=== PATIENT | male | born 1970 | race Caucasian/White ===

== ENCOUNTER → 2016-08-24 | Outpatient (CLI) | payer BC ==
--- NOTE | 2016-08-24 21:35 | MR ---
EXAMINATION TYPE: MR shoulder RT wo con DATE OF EXAM: 08/24/2016 6:34 PM COMPARISON: NONE HISTORY: Shoulder pain TECHNIQUE: Multiplanar, multisequence imaging of the right shoulder is performed without contrast. FINDINGS: The biceps tendon is intact. Subscapularis tendon is intact anteriorly but there is some mild anterio r displacement with intermediate signal displacing anteriorly the anterior aspect of the subscapulari s tendon on the axial images. There is metal artifact at the AC joint. There is evidence of a large defect in the supraspinatus ten don with partial retraction on the coronal images. The glenoid shauna appear intact. I see no fracture . IMPRESSION: No fracture seen. There is a large rotator cuff tear involving supraspinatus tendon with partial retr action of the tendon. There is metal artifact at the AC joint which is not well evaluated consistent with previous surgery. There is some thickening posterior to the subscapularis tendon which shows some mild anterior displac ement and this could relate to some hypertrophic changes with intrasubstance tear of the posterior as pect of the subscapularis tendon.
== END | disposition home or self-care (01) ==
LOC: RADMRIMAIN 17:33
PROVIDERS: ATTEND Orthopaedic Surgery
DX: M75.101 Unspecified rotator cuff tear or rupture of right shoulder, not specified as traumatic (principal); M75.81 Other shoulder lesions, right shoulder

== ENCOUNTER 2016-09-16 10:38 | Observation (INO) | payer BC ==
[2016-09-16] MEDS ORDERED: ONDANSETRON 4 MG/2 ML VIAL IVP STA (11:16)
[2016-09-16] MEDS ORDERED: RX INFO: IV CONTRAST WAS GIVEN 1 EACH MISC MISCELLANE PRN (11:16)
[2016-09-16] MEDS ORDERED: MORPHINE SULFATE 4 MG/ML SYRINGE IVP STA ×2 (11:16→13:34)
--- NOTE | 2016-09-16 11:48 | ED ---
Skin/Abscess/FB HPI <Chris Dale - Last Filed: 09/16/16 14:43> - General Source: patient, RN notes reviewed Mode of arrival: ambulatory Limitations: no limitations <Nathan Grace - Last Filed: 09/16/16 15:26> - General Chief complaint: Skin/Abscess/Foreign Body Stated complaint: cyst on genitals Time Seen by Provider: 09/16/16 11:05 - History of Present Illness Initial comments: 46 year male presents emergency Department chief complaint scrotal, groin abscess. Patient states she's had this multiple times in the past most recently 3 months ago. Patient states that a urologist drained in the emergency department. Patient states he originally told using be admitted for this. Patient states that he has not had any surgery on it as discussed. Patient states the last few days or increased pain, swelling. States she generally does not feel well. Patient denies any known fever. Patient states that the swelling is increasing and is tracking towards his anus. (Nathan Grace ) - Related Data Home Medications Medication Instructions Recorded Confirmed ALPRAZolam [Xanax] 0.5 mg PO BID PRN 09/16/16 09/16/16 Allergies Allergy/AdvReac Type Severity Reaction Status Date / Time No Known Allergies Allergy Verified 09/16/16 13:57 Review of Systems ROS Other: All systems not noted in ROS Statement are negative. <ChitoChris - Last Filed: 09/16/16 14:43> ROS Other: All systems not noted in ROS Statement are negative. <Nathan Grace - Last Filed: 09/16/16 15:26> ROS Statement: Those systems with pertinent positive or pertinent negative responses have been documented in the HPI. Past Medical History Additional Past Medical History / Comment(s): Aortic aneurysm History of Any Multi-Drug Resistant Organisms: None Reported Past Surgical History: No Surgical Hx Reported, Orthopedic Surgery Additional Past Surgical History / Comment(s): hx acsending aortic aneuysm Past Psychological History: No Psychological Hx Reported Smoking Status: Current every day smoker Past Alcohol Use History: None Reported Past Drug Use History: None Reported <Nathan Grace - Last Filed: 09/16/16 15:26> General Exam Limitations: no limitations General appearance: alert, in no apparent distress Respiratory exam: Present: normal lung sounds bilaterally. Absent: respiratory distress, wheezes, rales, rhonchi, stridor Cardiovascular Exam: Present: regular rate, normal rhythm, normal heart sounds. Absent: systolic murmur, diastolic murmur, rubs, gallop, clicks GI/Abdominal exam: Present: soft, normal bowel sounds. Absent: distended, tenderness, guarding, rebound, rigid exam: Present: other (Results large 4-5 cm area of swelling, erythema noted under the scrotum with swelling and erythema tracking towards his rectum.) Skin exam: Present: warm, dry <Nathan Grace - Last Filed: 09/16/16 15:26> Course <Chris Dale - Last Filed: 09/16/16 14:43> <Nathan Grace - Last Filed: 09/16/16 15:26> Vital Signs 09/16/16 09/16/16 09/16/16 10:54 13:12 14:10 Temperature 98.8 F 98.7 F Pulse Rate 83 71 66 Respiratory 20 20 20 Rate Blood Pressure 123/88 133/80 128/76 O2 Sat by Pulse 97 97 96 Oximetry 09/16/16 15:13 Temperature 99.0 F Pulse Rate 79 Respiratory 20 Rate Blood Pressure 100/58 O2 Sat by Pulse 100 Oximetry - Reevaluation(s) Reevaluation #1: 09/16/16 14:44 I personally examine the patient discuss findings with him and his . Patient symptoms started about 3 days ago. He's had some aches has not felt well had some fever chill feelings. He does demonstrate approximately 5-6 cm x 2 and half to 3 cm indurated area to the left scrotum extending toward the anal verge. This is tender but no definite fluctuance. Ultrasound does show evidence of 4.3 cm complex collection. I did discuss the case with Dr. Porter who will come in to see the patient. Patient of note did not have a fever today. (Chris Dale) Medical Decision Making - Lab Data Result diagrams: 09/16/16 11:35 09/16/16 11:35 <Chris Dale - Last Filed: 09/16/16 14:43> - Lab Data Result diagrams: 09/16/16 11:35 09/16/16 11:35 <Nathan Grace - Last Filed: 09/16/16 15:26> - Lab Data Lab Results 02/12/17 02/12/17 02/12/17 Range/Units 11:35 11:35 14:54 WBC 12.1 H (3.8-10.6) k/uL RBC 5.49 (4.30-5.90) m/uL Hgb 15.6 (13.0-17.5) gm/dL Hct 46.4 (39.0-53.0) % MCV 84.5 (80.0-100.0) fL MCH 28.4 (25.0-35.0) pg MCHC 33.6 (31.0-37.0) g/dL RDW 12.8 (11.5-15.5) % Plt Count 166 (150-450) k/uL Neutrophils % 71 % Lymphocytes % 18 % Monocytes % 5 % Eosinophils % 3 % Basophils % 2 % Neutrophils # 8.6 H (1.3-7.7) k/uL Lymphocytes # 2.2 (1.0-4.8) k/uL Monocytes # 0.6 (0-1.0) k/uL Eosinophils # 0.3 (0-0.7) k/uL Basophils # 0.2 (0-0.2) k/uL Sodium 141 (137-145) mmol/L Potassium 4.6 (3.5-5.1) mmol/L Chloride 104 (98-107) mmol/L Carbon Dioxide 24 (22-30) mmol/L Anion Gap 13 mmol/L BUN 15 (9-20) mg/dL Creatinine 0.78 (0.66-1.25) mg/dL Est GFR (MDRD) Af Amer >60 (>60 ml/min/1.73 sqM) Est GFR (MDRD) Non-Af >60 (>60 ml/min/1.73 sqM) Glucose 86 (74-99) mg/dL Calcium 9.4 (8.4-10.2) mg/dL Urine Color Yellow Urine Appearance Clear (Clear) Urine pH 6.0 (5.0-8.0) Urine Protein Negative (Negative) Urine Glucose (UA) Negative (Negative) Urine Ketones Negative (Negative) Urine Blood Negative (Negative) Urine Nitrate Negative (Negative) Urine Bilirubin Negative (Negative) Urine Urobilinogen <2.0 (<2.0) mg/dL Ur Leukocyte Esterase Negative (Negative) Disposition <Chris Dale - Last Filed: 09/16/16 14:43> <Nathan Grace - Last Filed: 09/16/16 15:26> Clinical Impression: Scrotal abscess Disposition: ADMITTED IP TO THIS HOSP
[2016-09-16 11:58] LABS: Basophils # (A) 0.2 k/uL (0-0.2); Basophils % (A) 2 %; CH 29.8; CHCM 35.4; Eosinophils # (A) 0.3 k/uL (0-0.7); Eosinophils % (A) 3 %; HCT 46.4 % (39.0-53.0); HDW 2.75; HGB 15.6 gm/dL (13.0-17.5); Luc # (Auto) 0.17; Luc % (Auto) 1; Lymphocytes # (A) 2.2 k/uL (1.0-4.8); Lymphocytes % (A) 18 %; MCH 28.4 pg (25.0-35.0); MCHC 33.6 g/dL (31.0-37.0); MCV 84.5 fL (80.0-100.0); Mean Platelet Volume 9.1; Monocytes # (A) 0.6 k/uL (0-1.0); Monocytes % (A) 5 %; Neutrophils # (A) 8.6 k/uL (1.3-7.7); Neutrophils % (A) 71 %; RBC 5.49 m/uL (4.30-5.90); RDW 12.8 % (11.5-15.5); WBC 12.1 k/uL (3.8-10.6); WBC (Perox) 11.89
[2016-09-16 12:13] LABS: Anion Gap 13 mmol/L; Blood Urea Nitrogen 15 mg/dL (9-20); Calcium 9.4 mg/dL (8.4-10.2); Carbon Dioxide 24 mmol/L (22-30); Chloride 104 mmol/L (98-107); Glucose 86 mg/dL (74-99); Non-African American GFR(MDRD) >60 (>60 ml/min/1.73 sqM); Potassium 4.6 mmol/L (3.5-5.1); Sodium 141 mmol/L (137-145)
--- NOTE | 2016-09-16 13:17 | CT ---
EXAMINATION TYPE: CT pelvis w con DATE OF EXAM: 09/16/2016 1:10 PM COMPARISON: NONE HISTORY: genital cysts CT DLP: 1129.7 mGycm Automated exposure control for dose reduction was used. CONTRAST: Performed with IV Contrast, patient injected with 100 mL of Omnipaque 300. FINDINGS: CT pelvis soft tissues appear normal. Urinary bladder is unremarkable. The prostate contains calcific ation. Small inguinal lymph nodes are present. No enlarged inguinal adenopathy is present. Diverticul ar changes are within the sigmoid colon. The appendix is normal IMPRESSION: NO ACUTE PELVIC ABNORMALITY
--- NOTE | 2016-09-16 14:08 | US ---
EXAMINATION TYPE: US scrotum with doppler. Grayscale and color Doppler Duplex imaging performed of nathanael arrington scrotum. DATE OF EXAM: 09/16/2016 1:53 PM COMPARISON: NONE CLINICAL HISTORY: abscess. Left palpable, painful area. EXAM MEASUREMENTS: TESTICLES: Right Testicle: 5.6 x 3.9 x 2.5cm Left Testicle: 5.2 x 3.7 x 3.0cm EPIDIDYMIS HEAD: Right Epididymis: 1.2 cm Left Epididymis: 1.0 cm Doppler performed to assess for testicular vascularity; good bilateral color flow and waveforms are s een. There is no evidence of testicular torsion. Presence of hydroceles: mild bilaterally Presence of varicoceles: no TECHNOLOGIST IMPRESSION: Prominent left epididymis, at site of patients palpable lesion there appear s to be a 4.3cm complex collection that could correlate to an abscess. Complex area extends lateral i nferior of left testicle down to perineum. IMPRESSION: 1. Complex collection lateral and inferior to the testicle. No color flow is evident within this area . 2. Mild bilateral hydroceles. 3. Bilateral testicles appear normal with normal color-flow
[2016-09-16 15:07] LABS: Appearance,Urine Clear (Clear); Bilirubin,Urine Negative (Negative); Glucose,Urine (UA) Negative (Negative); Ketones,Urine Negative (Negative); Leukocyte Esterase,Urine Negative (Negative); Nitrite,Urine Negative (Negative); Protein,Urine Negative (Negative); UA Billing (MACRO vs. MICRO) CHEM; Urobilinogen,Urine <2.0 mg/dL (<2.0)
[2016-09-16] MEDS ORDERED: NALOXONE 0.4 MG/ML 1 ML VIAL IV PRN (15:26)
--- NOTE | 2016-09-16 15:38 | P.GSHP ---
History of Present Illness H&P Date: 09/16/16 Chief Complaint: Scrotal pain and swelling The patient is a 46-year-old gentleman with a history of scrotal abscess who presents with a three-day history of left scrotal and perineal swelling. He was seen in the emergency room and suspected to have a scrotal abscess. Scrotal ultrasound was obtained and indeed identified a scrotal abscess. His white count is 12,000. I was asked to see the patient. On clinical examination he has a fluctuant abscess in the base of the left scrotum and perineum. There are no rectal symptoms. He had previous drainage several months ago by for the same problem in the same location. He has had no fever. He has no major medical problems. He is not on blood thinners. - Constitutional Constitutional: Denies chills, Denies fever - Gastrointestinal Gastrointestinal: Denies abdominal pain, Denies diarrhea, Denies nausea, Denies vomiting - Genitourinary (Female) Genitourinary: Denies dysuria, Denies hematuria Past Medical History Additional Past Medical History / Comment(s): Aortic aneurysm History of Any Multi-Drug Resistant Organisms: None Reported Past Surgical History: Orthopedic Surgery Additional Past Surgical History / Comment(s): hx acsending aortic aneuysm, scrotal abscess drainage Past Psychological History: No Psychological Hx Reported Smoking Status: Current every day smoker Past Alcohol Use History: None Reported Past Drug Use History: None Reported Medications and Allergies Home Medications Medication Instructions Recorded Confirmed Type ALPRAZolam [Xanax] 0.5 mg PO BID PRN 09/16/16 09/16/16 History Allergies Allergy/AdvReac Type Severity Reaction Status Date / Time No Known Allergies Allergy Verified 09/16/16 13:57 Surgical - Exam Vital Signs Temp Pulse Resp BP Pulse Ox 98.8 F 83 20 123/88 97 09/16/16 10:54 09/16/16 10:54 09/16/16 10:54 09/16/16 10:54 09/16/16 10:54 - General well developed, well nourished, moderate distress - Eyes PERRL - ENT no hearing loss - Neck no masses - Respiratory normal expansion, normal respiratory effort - Cardiovascular Rhythm: regular - Abdomen Abdomen: soft, non tender - Genitourinary In the left posterior scrotum extending into the perineum there is a 3-4 cm fluctuant area consistent with a scrotal abscess confirmed on scrotal ultrasound normal penis with no external lesions, testicles present - Neurologic normal coordination, normal sensation - Musculoskeletal normal posture - Psychiatric oriented to time, oriented to person, oriented to place Results - Labs 09/16/16 11:35 09/16/16 11:35 Abnormal Lab Results - Last 24 Hours (Table) 09/16/16 Range/Units 11:35 WBC 12.1 H (3.8-10.6) k/uL Neutrophils # 8.6 H (1.3-7.7) k/uL Diabetes panel 09/16/16 Range/Units 11:35 Sodium 141 (137-145) mmol/L Potassium 4.6 (3.5-5.1) mmol/L Chloride 104 (98-107) mmol/L Carbon Dioxide 24 (22-30) mmol/L BUN 15 (9-20) mg/dL Creatinine 0.78 (0.66-1.25) mg/dL Glucose 86 (74-99) mg/dL Calcium 9.4 (8.4-10.2) mg/dL Calcium panel 09/16/16 Range/Units 11:35 Calcium 9.4 (8.4-10.2) mg/dL Pituitary panel 09/16/16 Range/Units 11:35 Sodium 141 (137-145) mmol/L Potassium 4.6 (3.5-5.1) mmol/L Chloride 104 (98-107) mmol/L Carbon Dioxide 24 (22-30) mmol/L BUN 15 (9-20) mg/dL Creatinine 0.78 (0.66-1.25) mg/dL Glucose 86 (74-99) mg/dL Calcium 9.4 (8.4-10.2) mg/dL Adrenal panel 09/16/16 Range/Units 11:35 Sodium 141 (137-145) mmol/L Potassium 4.6 (3.5-5.1) mmol/L Chloride 104 (98-107) mmol/L Carbon Dioxide 24 (22-30) mmol/L BUN 15 (9-20) mg/dL Creatinine 0.78 (0.66-1.25) mg/dL Glucose 86 (74-99) mg/dL Calcium 9.4 (8.4-10.2) mg/dL Assessment and Plan Plan: Impression: Scrotal abscess Recommendations: Incision and drainage of scrotal abscess. This will be done in the operating room. Patient has not eaten since 4:00. He'll be given perioperative antibiotics.
[2016-09-16] MEDS ORDERED: AMPICILLIN 2,000 MG in SODIUM CHLORIDE 0.9% 100 ML IVPB STA (15:40)
[2016-09-16 15:55] LABS: Specific Gravity,Urine >1.050 (1.001-1.035)
[2016-09-16] MEDS ORDERED: ONDANSETRON 4 MG/2 ML VIAL IVP PRN (16:17)
[2016-09-16] MEDS ORDERED: LACTATED RINGERS 1,000 ML IV SCH (16:30)
[2016-09-16] MEDS ORDERED: KETAMINE 10 MG/ML 20 ML VIAL ONE (16:59)
[2016-09-16] MEDS ORDERED: PROPOFOL 10 MG/ML 20 ML VIAL IV ONE (16:59)
[2016-09-16] MEDS ORDERED: fentaNYL (PF) 50 MCG/ML 2 ML AMP ONE (16:59)
[2016-09-16] MEDS ORDERED: KETOROLAC 30 MG/ML 1 ML VIAL ONE (16:59)
[2016-09-16] MEDS ORDERED: MIDAZOLAM 2 MG/2 ML VIAL ONE (16:59)
[2016-09-16] MEDS ORDERED: LACTATED RINGERS 1,000 ML IV ONE (16:59)
[2016-09-16] MEDS ORDERED: ONDANSETRON 4 MG/2 ML VIAL ONE (16:59)
[2016-09-16] MEDS: GENTAMICIN 160 MG in SODIUM CHLORIDE 0.9% 100 ML IVPB ONE ×2 (17:10→17:12)
--- NOTE | 2016-09-16 17:29 | P.OP ---
Date of Procedure: 09/16/16 Preoperative Diagnosis: Scrotal abscess Postoperative Diagnosis: Same Procedure(s) Performed: Incision and drainage of scrotal abscess, culture of scrotal abscess Anesthesia: FREDDIE Surgeon: Chencho Porter Estimated Blood Loss (ml): 10 Pathology: other (Wound culture) Condition: stable Disposition: PACU Indications for Procedure: The patient is a 46-year-old [id number] diabetic who has for 3 days scrotal swelling. On examination he has a scrotal abscess he comes for incision and drainage Description of Procedure: Patient is brought to the operating suite. He is given general anesthesia. He' s placed lithotomy position with a sterile prep and drape. The scrotum was elevated. A vertical incision for about 3 cm is made. I dissect down through the subcu cutaneous tissue into the scrotal abscess. A foul smelling . Bunny drainage was obtained. It was cultured. The wound is irrigated thoroughly. It is packed prior to form gauze. It is dressed. The patient's awake and returned recovery room good condition. He'll be discharged home later upon recovery if he feels adequate. He will follow in the office in the morning for dressing change.
--- NOTE | 2016-09-16 17:29 | P.DS ---
Providers Date of admission: 09/16/16 15:26 Attending physician: Chencho Porter Primary care physician: Joe Palacios [facility] Course: The patient came to the ER was brought to the operating suite in 09/16/2016 for incision and drainage of scrotal abscess. He tolerated this well and discharged home the same day. He will follow-up in the office the following day for dressing change. His discharge is [place] and Augmentin Procedures: Incision and drainage of scrotal abscess Patient Condition at Discharge: Good Plan - Discharge Summary New Discharge Prescriptions: Amoxicillin/Potassium Clav [Augmentin 875-125 Tablet] 1 tab PO Q12HR #14 tab Hydrocodone/Acetaminophen [[place] 7.5-325] 1 each PO Q4HR PRN #30 tab PRN Reason: Pain Control Discharge Medication List ALPRAZolam [Xanax] 0.5 mg PO BID PRN 09/16/16 [History] Amoxicillin/Potassium Clav [Augmentin 875-125 Tablet] 1 tab PO Q12HR #14 tab 07/21 [Rx] Hydrocodone/Acetaminophen [[place] 7.5-325] 1 each PO Q4HR PRN #30 tab 09/16/16 [ Rx] Follow up Appointment(s)/Referral(s): Joe Palacios MD [Primary Care Provider] - 1-2 days Chencho Porter MD [STAFF PHYSICIAN] - 09/17/16 Discharge Disposition: HOME SELF-CARE
[2016-09-16 17:41] VITALS: TEMP 99
[2016-09-16 17:46] VITALS: RESP 18
[2016-09-16] MEDS: HYDROmorphone 1 MG/ML 1 ML SYRINGE IVP PRN ×2 (17:48→18:00)
[2016-09-16 18:18] VITALS: BP 130/77; PULSE 64
== END 2016-09-16 19:49 | disposition home or self-care (01) ==
LOC: EC 10:38 → INTOOBSV 15:26 → 3SUR 15:26
PROVIDERS: ADMIT Urology; ATTEND Urology
DX: N49.2 Inflammatory disorders of scrotum (principal); F17.200 Nicotine dependence, unspecified, uncomplicated; E11.9 Type 2 diabetes mellitus without complications; B96.89 Other specified bacterial agents as the cause of diseases classified elsewhere; I71.9 Aortic aneurysm of unspecified site, without rupture
CPT/HCPCS: 55899; 96375; 96376; 36415; 80048; 85025; 81003; 87040; 87070; 87205; 87075; 93975; 76870; 72193; 99285; 96374; G0378; J2250; J2270; J1580; J2405; J3010; J1885; J0290; J1170; Q9967; J2704

== ENCOUNTER → 2016-09-25 | Outpatient (CLI) | payer BC ==
[2016-09-25 08:31] LABS: Basophils # (A) 0.1 k/uL (0-0.2); Basophils % (A) 1 %; CH 29.3; CHCM 34.4; Eosinophils # (A) 0.3 k/uL (0-0.7); Eosinophils % (A) 4 %; HCT 46.5 % (39.0-53.0); HDW 2.78; HGB 15.6 gm/dL (13.0-17.5); Luc # (Auto) 0.16; Luc % (Auto) 2; Lymphocytes # (A) 2.7 k/uL (1.0-4.8); Lymphocytes % (A) 38 %; MCH 28.7 pg (25.0-35.0); MCHC 33.6 g/dL (31.0-37.0); MCV 85.5 fL (80.0-100.0); Mean Platelet Volume 7.5; Monocytes # (A) 0.3 k/uL (0-1.0); Monocytes % (A) 4 %; Neutrophils # (A) 3.7 k/uL (1.3-7.7); Neutrophils % (A) 51 %; RBC 5.44 m/uL (4.30-5.90); RDW 12.7 % (11.5-15.5); WBC 7.1 k/uL (3.8-10.6); WBC (Perox) 7.28
[2016-09-25 08:40] LABS: Potassium 4.5 mmol/L (3.5-5.1)
== END | disposition home or self-care (01) ==
LOC: LABPAT 08:06
PROVIDERS: ATTEND Orthopaedic Surgery
DX: Z01.812 Encounter for preprocedural laboratory examination (principal)
CPT/HCPCS: 80051; 85025

== ENCOUNTER 2016-10-03 08:23 | Day surgery (SDC) | payer BC ==
[2016-10-01 12:03] VITALS: BMI 32.1
--- NOTE | 2016-10-02 18:52 | HP ---
DATE OF ADMISSION: 10/03/2016 Renato Mayen is a 46-year-old patient seen with progressive right shoulder pain. After having options regarding treatment discussed, he elected to proceed with right shoulder arthroscopy. Consent was obtained. ( ) preoperative by Dr. Quan. Past medical history is noncontributory. Past surgical history is knee arthroscopy, shoulder arthroscopy. DAILY MEDICATIONS: Motrin, Xanax. ALLERGIES: NONE REPORTED. SOCIAL HISTORY: Patient currently smokes cigarettes. PHYSICAL EVALUATION OF RIGHT SHOULDER: Flexion 150 degrees, abduction 120 degrees. External rotation is 45 degrees with some weakness. There is tenderness along the anterolateral acromion and the rotator cuff insertion. Impingement is positive 90 degrees. Drop arm sign is positive. Distal neurovascular exam is intact. Radiographs of the right shoulder revealed a lateral down-sloping acromion, evidence for acromioclavicular joint osteoarthritis. MRI of the right shoulder revealed a large retracted rotator cuff tendon tear. IMPRESSION: Right shoulder impingement with rotator cuff tear. PLAN: Right shoulder arthroscopy with subacromial decompression, probable arthroscopic rotator cuff repair and debridement.
[~2016-10-03 08:23] MED LIST: DEXAMETHASONE SOD PHOSPHATE 10 MG/ML 1 ML VIAL IV ONE; HYDROmorphone 1 MG/ML 1 ML SYRINGE IVP PRN; LACTATED RINGERS 1,000 ML IV SCH; MIDAZOLAM 2 MG/2 ML VIAL IV PRN; ONDANSETRON 4 MG/2 ML VIAL IVP ONE; ceFAZolin 2 GM in SODIUM CHLORIDE 0.9% 100 ML IVPB ONE; fentaNYL (PF) 50 MCG/ML 20 ML VIAL IVP PRN
[2016-10-03] MEDS ORDERED: MIDAZOLAM 2 MG/2 ML VIAL IVP ONE (08:40)
[2016-10-03] MEDS ORDERED: fentaNYL (PF) 50 MCG/ML 2 ML AMP IV ONE (08:40)
[2016-10-03 08:59] VITALS: RESP 16
[2016-10-03] MEDS ORDERED: LIDOCAINE 1% 20 ML VIAL (10MG/ML) FOR IV START INTRADERMA ONE (09:07)
[2016-10-03] MEDS ORDERED: fentaNYL (PF) 50 MCG/ML 2 ML AMP ONE (10:13)
[2016-10-03] MEDS ORDERED: PROPOFOL 10 MG/ML 20 ML VIAL IV ONE (10:13)
[2016-10-03] MEDS ORDERED: MIDAZOLAM 2 MG/2 ML VIAL ONE (10:13)
[2016-10-03] MEDS ORDERED: ROPIVACAINE 5 MG/ML 30 ML VIAL ONE (10:13)
[2016-10-03] MEDS ORDERED: ePHEDrine 50 MG/ML 1 ML AMP ONE (10:13)
[2016-10-03] MEDS ORDERED: LIDOCAINE 2%-EPI 1:100,000 20 ML VIAL ONE (10:13)
[2016-10-03] MEDS ORDERED: LIDOCAINE 1% INJ 10MG/ML (20 ML MDV) ONE (10:13)
[2016-10-03] MEDS ORDERED: LACTATED RINGERS 1,000 ML IV ONE (11:23)
[2016-10-03 11:54] VITALS: TEMP 97.1
--- NOTE | 2016-10-03 11:56 | P.OP ---
Date of Procedure: 10/03/16 Preoperative Diagnosis: Right shoulder impingement Postoperative Diagnosis: 1. Right shoulder impingement 2. Right shoulder superficial partial rotator cuff tendon tear 3. Right shoulder superior labral tear Procedure(s) Performed: 1. Right shoulder arthroscopic subacromial decompression 2. Right shoulder arthroscopic debridement superficial rotator cuff tear 3. Right shoulder arthroscopic debridement labral tear Anesthesia: GETA, regional (Interscalene block) Surgeon: Amari Pelayo Labor Expediter #1: Jorge Ortega Estimated Blood Loss (ml): 10 Pathology: none sent Condition: stable Disposition: PACU Indications for Procedure: 46-year-old patient seen with progressive right shoulder pain. After having treatment options discussed, he elected to proceed with right shoulder arthroscopy. Operative Findings: See description of procedure Description of Procedure: Patient underwent a shoulder block by department of anesthesia. The patient was then taken to the operative suite. The patient underwent a general anesthetic by the department of anesthesia. The patient was placed into a lateral position and secured. There was appropriate padding of the bony prominence. Right shoulder was then prepped and draped in normal sterile orthopedic fashion. We placed the extremity in 10 pounds of longitudinal traction. A posterior incision was now made for a posterior working portal site. The trocar and cannula were inserted into the glenohumeral joint. Arthroscopy was initiated. Spinal needle was now inserted anteriorly, to ascertain the anterior working portal site. An incision was now made in that area, a trocar was inserted followed by a probe. There was superficial tearing of the superior labrum. The humeral head and glenoid fossa were unremarkable. The biceps tendon was absent. The anterior labrum was diminutive but stable. The inferior and posterior labrum were intact. There were no loose bodies. I do not see any evidence for rotator cuff tear visualized from glenohumeral side. I debrided the labral tear down to stable tissue. The residual labrum was probed and found stable. At this point instruments were removed from the glenohumeral joint. Utilizing the posterior working portal site, the trocar and cannula were inserted into the subacromial space. Arthroscopy initiated. I made an incision 2 fingerbreadths lateral to the acromion. I introduced my trocar followed by my [employer] ablator. I now began ablating thick subacromial bursal tissue, which exposed the undersurface of the anterior acromion. This was diminished subacromial space. There was a very prominent anterior acromion. A motorized bur was introduced and a subacromial decompression was performed. I noted good decompression of the subacromial space at this point. There was evidence for previous Ev procedure which appeared stable. I now turned my attention towards rotator cuff tendon. There was some superficial tearing along the distal supraspinatus tendon centrally. I debrided that down to stable tissue. I probed the area and there was no evidence for any perforation or through and through tear. The residual tendon tissue was stable. I now injected 1 mL Allogen into the area without difficulty. Instruments now removed from the portal sites. All portal sites were approximated with nylon suture. Sterile dressings were applied followed by a shoulder immobilizer. Neel FONG assisted with the procedure. The patient was awakened, transferred to a bed, and taken to recovery in stable condition.
[2016-10-03 12:51] VITALS: BP 138/87; PULSE 68
== END 2016-10-03 14:19 | disposition home or self-care (01) ==
LOC: OR 08:23
PROVIDERS: ATTEND Orthopaedic Surgery
DX: M75.111 Incomplete rotator cuff tear or rupture of right shoulder, not specified as traumatic (principal); M75.41 Impingement syndrome of right shoulder; S43.401A Unspecified sprain of right shoulder joint, initial encounter; X58.XXXA Exposure to other specified factors, initial encounter; I71.9 Aortic aneurysm of unspecified site, without rupture; I10 Essential (primary) hypertension; Z79.1 Long term (current) use of non-steroidal anti-inflammatories (NSAID); Z79.891 Long term (current) use of opiate analgesic; Z79.899 Other long term (current) drug therapy; F17.210 Nicotine dependence, cigarettes, uncomplicated; Z82.49 Family history of ischemic heart disease and other diseases of the circulatory system
CPT/HCPCS: 64415; 29826; 29827; C1765; J2250; J1100; J0690; J2405; J2001; J3010; J2795; J2704

== ENCOUNTER 2017-05-10 03:11 | Observation (INO) | payer BC ==
[2017-05-10] MEDS ORDERED: ONDANSETRON 4 MG/2 ML VIAL IVP STA (03:37)
[2017-05-10] MEDS ORDERED: RX INFO: IV CONTRAST WAS GIVEN 1 EACH MISC MISCELLANE PRN (03:37)
[2017-05-10] MEDS ORDERED: MORPHINE SULFATE 4 MG/ML SYRINGE IV STA (03:37)
[2017-05-10] MEDS ORDERED: SODIUM CHLORIDE 0.9% 1,000 ML IV STA ×2 (03:37)
--- NOTE | 2017-05-10 03:49 | ED ---
General Adult HPI - General Source: patient, RN notes reviewed, old records reviewed Mode of arrival: ambulatory Limitations: no limitations <Chris Sweeney - Last Filed: 05/10/17 06:47> <Melchor Mendoza - Last Filed: 05/10/17 08:56> - General Chief complaint: Skin/Abscess/Foreign Body Stated complaint: cyst on groin area Time Seen by Provider: 05/10/17 03:33 - History of Present Illness Initial comments: 46-year-old male presents for evaluation 2 days of pain and swelling at the base of his scrotum. Patient has had history of abscess in this area and febrile or 2017. Patient had an abscess drained by urology. Patient reports over the past 2 days pain is significantly worsened. He has had subjective fever and chills. Denies any dysuria. Denies any testicular pain. Patient states he has had some nausea associated with the pain. No vomiting. No abdominal pain. Patient denies any drainage. Denies any rectal pain or change in his bowels. (Chris Sweeney) - Related Data Home Medications Medication Instructions Recorded Confirmed Citalopram Hydrobromide [CeleXA] 20 mg PO HS 05/10/17 05/10/17 Ibuprofen [Motrin] 600 mg PO Q6H PRN 05/10/17 05/10/17 Allergies Allergy/AdvReac Type Severity Reaction Status Date / Time No Known Allergies Allergy Verified 05/10/17 07:09 Review of Systems ROS Other: All systems not noted in ROS Statement are negative. <Chris Sweeney - Last Filed: 05/10/17 06:47> ROS Other: All systems not noted in ROS Statement are negative. <Melchor Mendoza - Last Filed: 05/10/17 08:56> ROS Statement: Those systems with pertinent positive or pertinent negative responses have been documented in the HPI. Past Medical History Additional Past Medical History / Comment(s): Aortic aneurysm History of Any Multi-Drug Resistant Organisms: None Reported Past Surgical History: Orthopedic Surgery Additional Past Surgical History / Comment(s): hx acsending aortic aneuysm, scrotal abscess drainage. right shoulder Past Psychological History: No Psychological Hx Reported Smoking Status: Current every day smoker Past Alcohol Use History: None Reported Past Drug Use History: None Reported <Chris Sweeney - Last Filed: 05/10/17 06:47> General Exam Limitations: no limitations General appearance: alert, in no apparent distress Head exam: Present: atraumatic, normocephalic Eye exam: Present: normal appearance, PERRL ENT exam: Present: mucous membranes dry Neck exam: Present: normal inspection. Absent: tenderness, meningismus Respiratory exam: Present: normal lung sounds bilaterally. Absent: respiratory distress Cardiovascular Exam: Present: normal rhythm, tachycardia GI/Abdominal exam: Present: soft. Absent: distended, tenderness Rectal exam: Present: normal inspection exam: Present: other (Large amount of swelling, erythema at the base of the scrotum. There is central fluctuance and surrounding induration.). Absent: testicular tenderness, urethral discharge, scrotal swelling Extremities exam: Present: normal inspection, full ROM Neurological exam: Present: alert, oriented X3 Psychiatric exam: Present: normal affect, normal mood Skin exam: Present: warm, dry, intact <Chris Sweeney - Last Filed: 05/10/17 06:47> Medical Decision Making - Lab Data Result diagrams: 05/10/17 03:48 05/10/17 03:48 <Chris Sweeney - Last Filed: 05/10/17 06:47> - Lab Data Result diagrams: 05/10/17 03:48 05/10/17 03:48 <Melchor Mendoza - Last Filed: 05/10/17 08:56> - Medical Decision Making 46-year-old male presenting with pain and swelling at the base of his scrotum. On examination patient does have an area of erythema, swelling, induration and severe tenderness in the perineum acid on the left. There is some swelling in the scrotum as well. No testicular tenderness. Blood processes revealed mild elevation in serum white count 12.8. Patient is initially tachycardic, this resolves with fluid hydration. No elevated temperature in the emergency department. Computed tomography scan of the pelvis is obtained, shows a 4 cm x 1.5 cm fluid collection with adjacent fat stranding. This does not appear to violate the pelvic floor. I did discuss the case with Dr. sullivan, who is familiar with the patient. He will evaluate the patient in the emergency department. Diagnosis: Perineal and scrotal abscess (HelChris robins Dr. came down to see the patient will be taking the patient to the OR. ( Melchor Mendoza) - Lab Data Lab Results 05/10/17 05/10/17 05/10/17 Range/Units 03:48 03:48 03:48 WBC 12.8 H (3.8-10.6) k/uL RBC 5.01 (4.30-5.90) m/uL Hgb 15.0 (13.0-17.5) gm/dL Hct 43.9 (39.0-53.0) % MCV 87.5 (80.0-100.0) fL MCH 30.0 (25.0-35.0) pg MCHC 34.2 (31.0-37.0) g/dL RDW 13.2 (11.5-15.5) % Plt Count 146 L (150-450) k/uL Neutrophils % 72 % Lymphocytes % 19 % Monocytes % 5 % Eosinophils % 3 % Basophils % 0 % Neutrophils # 9.2 H (1.3-7.7) k/uL Lymphocytes # 2.5 (1.0-4.8) k/uL Monocytes # 0.6 (0-1.0) k/uL Eosinophils # 0.4 (0-0.7) k/uL Basophils # 0.1 (0-0.2) k/uL Sodium 137 (137-145) mmol/L Potassium 4.7 (3.5-5.1) mmol/L Chloride 103 (98-107) mmol/L Carbon Dioxide 25 (22-30) mmol/L Anion Gap 9 mmol/L BUN 15 (9-20) mg/dL Creatinine 0.70 (0.66-1.25) mg/dL Est GFR (MDRD) Af Amer >60 (>60 ml/min/1.73 sqM) Est GFR (MDRD) Non-Af >60 (>60 ml/min/1.73 sqM) Glucose 97 (74-99) mg/dL Plasma Lactic Acid Kiran 0.9 (0.7-2.0) mmol/L Calcium 9.3 (8.4-10.2) mg/dL Total Bilirubin 0.5 (0.2-1.3) mg/dL AST 24 (17-59) U/L ALT 42 (21-72) U/L Alkaline Phosphatase 124 (38-126) U/L Total Protein 6.7 (6.3-8.2) g/dL Albumin 4.0 (3.5-5.0) g/dL Lipase 88 (23-300) U/L Urine Color Urine Appearance (Clear) Urine pH (5.0-8.0) Ur Specific [place] (1.001-1.035) Urine Protein (Negative) Urine Glucose (UA) (Negative) Urine Ketones (Negative) Urine Blood (Negative) Urine Nitrite (Negative) Urine Bilirubin (Negative) Urine Urobilinogen (<2.0) mg/dL Ur Leukocyte Esterase (Negative) 05/10/17 Range/Units 04:50 WBC (3.8-10.6) k/uL RBC (4.30-5.90) m/uL Hgb (13.0-17.5) gm/dL Hct (39.0-53.0) % MCV (80.0-100.0) fL MCH (25.0-35.0) pg MCHC (31.0-37.0) g/dL RDW (11.5-15.5) % Plt Count (150-450) k/uL Neutrophils % % Lymphocytes % % Monocytes % % Eosinophils % % Basophils % % Neutrophils # (1.3-7.7) k/uL Lymphocytes # (1.0-4.8) k/uL Monocytes # (0-1.0) k/uL Eosinophils # (0-0.7) k/uL Basophils # (0-0.2) k/uL Sodium (137-145) mmol/L Potassium (3.5-5.1) mmol/L Chloride (98-107) mmol/L Carbon Dioxide (22-30) mmol/L Anion Gap mmol/L BUN (9-20) mg/dL Creatinine (0.66-1.25) mg/dL Est GFR (MDRD) Af Amer (>60 ml/min/1.73 sqM) Est GFR (MDRD) Non-Af (>60 ml/min/1.73 sqM) Glucose (74-99) mg/dL Plasma Lactic Acid Kiran (0.7-2.0) mmol/L Calcium (8.4-10.2) mg/dL Total Bilirubin (0.2-1.3) mg/dL AST (17-59) U/L ALT (21-72) U/L Alkaline Phosphatase (38-126) U/L Total Protein (6.3-8.2) g/dL Albumin (3.5-5.0) g/dL Lipase (23-300) U/L Urine Color Yellow Urine Appearance Clear (Clear) Urine pH 7.5 (5.0-8.0) Ur Specific [place] 1.014 (1.001-1.035) Urine Protein Negative (Negative) Urine Glucose (UA) Negative (Negative) Urine Ketones Negative (Negative) Urine Blood Negative (Negative) Urine Nitrite Negative (Negative) Urine Bilirubin Negative (Negative) Urine Urobilinogen <2.0 (<2.0) mg/dL Ur Leukocyte Esterase Negative (Negative) Disposition <Chris Sweeney - Last Filed: 05/10/17 06:47> Time of Disposition: 08:55 <Melchor Mendoza - Last Filed: 05/10/17 08:56> Clinical Impression: Perineal abscess Disposition: ADMITTED IP TO THIS HOSP Referrals: Joe Palacios MD [Primary Care Provider] - 1-2 days
[2017-05-10] MEDS ORDERED: VANCOMYCIN IV PER PHARMACY 1 EACH MISC MISCELLANE PRN (04:07)
[2017-05-10] MEDS ORDERED: CLINDAMYCIN 600 MG in DEXTROSE 5% IN WATER 50 ML IVPB STA ×2 (04:09)
[2017-05-10 04:11] LABS: Basophils # (A) 0.1 k/uL (0-0.2); Basophils % (A) 0 %; CHCM 34.4; Eosinophils # (A) 0.4 k/uL (0-0.7); Eosinophils % (A) 3 %; HCT 43.9 % (39.0-53.0); HDW 2.66; Luc # (Auto) 0.15; Luc % (Auto) 1; Lymphocytes # (A) 2.5 k/uL (1.0-4.8); Lymphocytes % (A) 19 %; MCHC 34.2 g/dL (31.0-37.0); MCV 87.5 fL (80.0-100.0); Mean Platelet Volume 8.3; Monocytes # (A) 0.6 k/uL (0-1.0); Monocytes % (A) 5 %; Neutrophils # (A) 9.2 k/uL (1.3-7.7); Neutrophils % (A) 72 %; RBC 5.01 m/uL (4.30-5.90); RDW 13.2 % (11.5-15.5); WBC 12.8 k/uL (3.8-10.6)
[2017-05-10 04:23] LABS: ALT 42 U/L (21-72); AST 24 U/L (17-59); Alkaline Phosphatase 124 U/L (38-126); Anion Gap 9 mmol/L; Blood Urea Nitrogen 15 mg/dL (9-20); Calcium 9.3 mg/dL (8.4-10.2); Carbon Dioxide 25 mmol/L (22-30); Chloride 103 mmol/L (98-107); Glucose 97 mg/dL (74-99); Non-African American GFR(MDRD) >60 (>60 ml/min/1.73 sqM); Potassium 4.7 mmol/L (3.5-5.1); Sodium 137 mmol/L (137-145); Total Bilirubin 0.5 mg/dL (0.2-1.3); Total Protein 6.7 g/dL (6.3-8.2)
[2017-05-10 05:04] LABS: Appearance,Urine Clear (Clear); Bilirubin,Urine Negative (Negative); Glucose,Urine (UA) Negative (Negative); Ketones,Urine Negative (Negative); Leukocyte Esterase,Urine Negative (Negative); Nitrite,Urine Negative (Negative); PH, Urine 7.5 (5.0-8.0); Protein,Urine Negative (Negative); Specific Gravity,Urine 1.014 (1.001-1.035); UA Billing (MACRO vs. MICRO) CHEM; Urobilinogen,Urine <2.0 mg/dL (<2.0)
[2017-05-10] MEDS ORDERED: KETOROLAC 30 MG/ML 1 ML VIAL IVP STA ×2 (05:38→11:32)
--- NOTE | 2017-05-10 05:47 | CT ---
ADDENDUM - Added by Airam Jaime M.D. on 05/10/2017 6:01 AM (-07:00) Finding in the left perineum extending into the left scrotal sac measuring 4 x 1.5 cm concerning for developing abscess. Surrounding inflammatory change and soft tissue stranding. No definite extension into the pelvic floor at this time. Findings similar to the prior CT of 09/16/16 likely recurrence of infection EXAM: CT Abdomen and Pelvis With Intravenous Contrast CLINICAL HISTORY: Reason: abdominal pain TECHNIQUE: Axial computed tomography images of the abdomen and pelvis with intravenous contrast. CTDI is 14.1 mGy and DLP is 933 mGy-cm. This CT exam was performed using one or more of the following dose reduction techniques: automated exposure control, adjustment of the mA and/or kV according to patient size, and/or use of iterative reconstruction technique. COMPARISON: Prior CT of the pelvis performed on 09/16/16 FINDINGS: Lower thorax: Bibasilar atelectasis/scarring. ABDOMEN: Liver: Unremarkable. No mass. Gallbladder and bile ducts: Unremarkable. No calcified stones. No ductal dilation. Pancreas: Unremarkable. No mass. No ductal dilation. Spleen: Unremarkable. No splenomegaly. Adrenals: Unremarkable. No mass. Kidneys and ureters: Small left renal lesion, probable cyst. This is too small to fully characterize. Duplicated left renal collecting system. Stomach and bowel: Mild diverticulosis. Thickening of the stomach wall, likely due to underdistention. Nonspecific bowel gas pattern in the small bowel. Few scattered air-fluid levels in the small bowel loops in the left midabdomen, probable focal ileus. Mild enteritis can give this appearance. No evidence for small bowel obstruction. Appendix: Normal appendix. PELVIS: Bladder: Underdistended bladder. No bladder calcification. Reproductive: Punctate calcification in the prostate, unchanged. ABDOMEN and PELVIS: Intraperitoneal space: No free fluid. No free air. Bones/joints: No acute fracture. No dislocation. Soft tissues: Unremarkable. Vasculature: Unremarkable. No abdominal aortic aneurysm. Lymph nodes: Unremarkable. No enlarged lymph nodes. Other findings: Mild to moderate retained stool. IMPRESSION: Nonspecific bowel gas pattern with findings which may reflect focal ileus versus enteritis. Mild to moderate retained stool. No free fluid or free air. Mild diverticulosis. Critical Value Communications 05/10/17 05:[address] Sweeney on 05/10 05:52 (-04:00) 05/10/17 06:11 Verify Receipt Verified receipt with SARABJIT Espinoza in ER for Dr. Lee on 05/10 06:10 (-04:00)
[2017-05-10] MEDS ORDERED: MORPHINE SULFATE 4 MG/ML SYRINGE IVP STA (06:11)
--- NOTE | 2017-05-10 07:45 | P.GSHP ---
History of Present Illness H&P Date: 05/10/17 Chief Complaint: Scrotal swelling The patient is a 46 year old male with a and bilateral says he first developed some fullness he was anterior to the anus and posterior the scrotum on 2016. As today he noted increasing swelling as well as a low-grade fever and chills. He has a history of a scrotal abscess which was drained by Dr. Porter in 09/2016 and was concerned that he may have a recurrence. He came to the emergency room late last night where he was evaluated and noted to have a white blood count of 12,800. Computed tomography scan of the abdomen and pelvis showed evidence of an abscess to the left of the anus in the perineal area. The patient was admitted for the purpose of antibiotic treatment and incision and drainage of the abscess. - Constitutional Constitutional: Reports chills, Reports sweats - Cardiovascular Cardiovascular: Denies chest pain - Respiratory Respiratory: Denies cough, Denies wheezing - Gastrointestinal Gastrointestinal: Denies abdominal pain - Genitourinary (Female) Genitourinary: Denies difficulty voiding, Denies dysuria - Genitourinary (Male) Genitourinary: Reports as per HPI Past Medical History Additional Past Medical History / Comment(s): Aortic aneurysm History of Any Multi-Drug Resistant Organisms: None Reported Past Surgical History: Orthopedic Surgery Additional Past Surgical History / Comment(s): hx acsending aortic aneuysm, scrotal abscess drainage. right shoulder Past Psychological History: No Psychological Hx Reported Smoking Status: Current every day smoker Past Alcohol Use History: None Reported Past Drug Use History: None Reported Medications and Allergies Home Medications Medication Instructions Recorded Confirmed Type Citalopram Hydrobromide [CeleXA] 20 mg PO HS 05/10/17 05/10/17 History Ibuprofen [Motrin] 600 mg PO Q6H PRN 05/10/17 05/10/17 History Allergies Allergy/AdvReac Type Severity Reaction Status Date / Time No Known Allergies Allergy Verified 05/10/17 07:09 Surgical - Exam Vital Signs Temp Pulse Resp BP Pulse Ox 98.5 F 106 H 20 129/75 98 05/10/17 03:16 05/10/17 03:16 05/10/17 03:16 05/10/17 03:16 05/10/17 03:16 - General well developed, moderate distress - Respiratory normal respiratory effort - Abdomen Abdomen: soft, non tender - Genitourinary testicles non-tender, other (There is a fluctuant mass in the perineum to the left of the midline was to the scrotum and anterior to the anus which measures approximately 2 cm in diameter. Corresponds to the abnormality noted on the computed tomography scan and would be consistent with a perineal abscess) - Rectum Rectum: other Results - Labs 05/10/17 03:48 05/10/17 03:48 Abnormal Lab Results - Last 24 Hours (Table) 05/10/17 Range/Units 03:48 WBC 12.8 H (3.8-10.6) k/uL Plt Count 146 L (150-450) k/uL Neutrophils # 9.2 H (1.3-7.7) k/uL Diabetes panel 05/10/17 Range/Units 03:48 Sodium 137 (137-145) mmol/L Potassium 4.7 (3.5-5.1) mmol/L Chloride 103 (98-107) mmol/L Carbon Dioxide 25 (22-30) mmol/L BUN 15 (9-20) mg/dL Creatinine 0.70 (0.66-1.25) mg/dL Glucose 97 (74-99) mg/dL Calcium 9.3 (8.4-10.2) mg/dL AST 24 (17-59) U/L ALT 42 (21-72) U/L Alkaline Phosphatase 124 (38-126) U/L Total Protein 6.7 (6.3-8.2) g/dL Albumin 4.0 (3.5-5.0) g/dL Calcium panel 05/10/17 Range/Units 03:48 Calcium 9.3 (8.4-10.2) mg/dL Albumin 4.0 (3.5-5.0) g/dL Pituitary panel 05/10/17 Range/Units 03:48 Sodium 137 (137-145) mmol/L Potassium 4.7 (3.5-5.1) mmol/L Chloride 103 (98-107) mmol/L Carbon Dioxide 25 (22-30) mmol/L BUN 15 (9-20) mg/dL Creatinine 0.70 (0.66-1.25) mg/dL Glucose 97 (74-99) mg/dL Calcium 9.3 (8.4-10.2) mg/dL Adrenal panel 05/10/17 Range/Units 03:48 Sodium 137 (137-145) mmol/L Potassium 4.7 (3.5-5.1) mmol/L Chloride 103 (98-107) mmol/L Carbon Dioxide 25 (22-30) mmol/L BUN 15 (9-20) mg/dL Creatinine 0.70 (0.66-1.25) mg/dL Glucose 97 (74-99) mg/dL Calcium 9.3 (8.4-10.2) mg/dL Total Bilirubin 0.5 (0.2-1.3) mg/dL AST 24 (17-59) U/L ALT 42 (21-72) U/L Alkaline Phosphatase 124 (38-126) U/L Total Protein 6.7 (6.3-8.2) g/dL Albumin 4.0 (3.5-5.0) g/dL - Imaging CT scan - abdomen: image reviewed (There appears to be an abscess to the left of the midline in the perineal region) Assessment and Plan (1) Perineal abscess Narrative/Plan: The patient appears to have recurrence of his perineal abscess. He has been started on antibiotics and will be set up for incision and drainage under anesthesia later today. Status: Acute
[2017-05-10] MEDS ORDERED: MORPHINE SULFATE 2 MG/ML SYRINGE IVP ONE (09:06)
[2017-05-10] MEDS ORDERED: DEXAMETHASONE SOD PHOSPHATE 10 MG/ML 1 ML VIAL IV ONE (11:49)
[2017-05-10] MEDS ORDERED: IV FLUID CONTINUATION 1,000 ML IV ONE (12:18)
[2017-05-10] MEDS ORDERED: MIDAZOLAM 2 MG/2 ML VIAL ONE (12:22)
[2017-05-10] MEDS ORDERED: ePHEDrine 50 MG/ML 1 ML AMP ONE (12:22)
[2017-05-10] MEDS ORDERED: fentaNYL (PF) 50 MCG/ML 2 ML AMP ONE (12:22)
[2017-05-10] MEDS ORDERED: HYDROmorphone (PF) 1 MG/ML ONE (12:22)
[2017-05-10] MEDS ORDERED: PROPOFOL 10 MG/ML 20 ML VIAL IV ONE (12:22)
[2017-05-10] MEDS ORDERED: LACTATED RINGERS 1,000 ML IV ONE (12:44)
[2017-05-10 13:04] VITALS: RESP 18; TEMP 98.4
[2017-05-10 13:50] VITALS: PULSE 65
--- NOTE | 2017-05-10 16:20 | P.OP ---
Date of Procedure: 05/10/17 Preoperative Diagnosis: Perineal abscess Postoperative Diagnosis: Perineal abcess Procedure(s) Performed: Incision and drainage of perineal abcess Anesthesia: FREDDIE Surgeon: Matias Hanna Condition: stable Disposition: PACU Indications for Procedure: The patient is a 46-year-old male with a history of swelling in the perineum posterior to the scrotum on the left side which began 2 days ago. The patient has a fluctuant area consistent with an abscess. Incision and drainage is planned. Description of Procedure: The patient was taken the operating suite where adequate general anesthesia via LMA was instituted. The patient was placed in the dorsal lithotomy position with his legs suspended from padded Hesham stirrups. Pneumatic compression stockings were applied to the lower legs. The perineum was prepped with Betadine solution and draped in a sterile fashion. A fluctuant area was present to the left of the midline posterior to the scrotum. A 1.5 cm skin incision was made in the central area of the fluctuant region and approximately 30 mL of yellowish brown purulent material drained. The abscess cavity was probed with a hemostat and no additional drainage was liberated. Abscess cavity was irrigated with saline through a 16-Danish red rubber catheter. It was then packed with 1/2 inch iodoform gauze which was secured to the skin edge with 2-0 silk. A sterile dressing was applied. The patient tolerated the procedure well and left the operative room awake and in satisfactory condition. A culture from the fluid was obtained. Blood loss during the procedure was less than 2 mL.
[2017-05-10 17:27] VITALS: BP 116/69
[2017-05-10] MEDS ORDERED: CITALOPRAM HYDROBROMIDE 20 MG TAB PO SCH (21:00)
--- NOTE | 2017-06-03 20:15 | P.DS ---
Providers Date of admission: 05/10/17 08:56 Expected date of discharge: 05/10/17 Attending physician: Matias Hanna Primary care physician: Joe Palacios - Discharge Diagnosis(es) (1) Perineal abscess The patient was admitted from the ER for the purpose of drainage of a perineal abcess. He has a history of a similar abcess that required drainage under anesthesia in the spring. The patient underwent Incision and drainage of the abcess under general anesthesia on the day of admission and was discharged later in the day. The abcess cavity was packed with Iodoform gauze. Status: Acute Patient Condition at Discharge: Good Plan - Discharge Summary New Discharge Prescriptions: New Acetaminophen-Codeine 300-30mg [Tylenol w/codeine #3] 1 tab PO Q6H PRN #6 tablet PRN Reason: Pain Sulfamethox-Tmp 800-160Mg [Bactrim DS 800-160 mg] 1 tab PO Q12HR #14 tab No Action Citalopram Hydrobromide [CeleXA] 20 mg PO HS Ibuprofen [Motrin] 600 mg PO Q6H PRN PRN Reason: Pain Discharge Medication List Acetaminophen-Codeine 300-30mg [Tylenol w/codeine #3] 1 tab PO Q6H PRN #6 tablet 05/10/17 [Rx] Citalopram Hydrobromide [CeleXA] 20 mg PO HS 05/10/17 [History] Ibuprofen [Motrin] 600 mg PO Q6H PRN 05/10/17 [History] Sulfamethox-Tmp 800-160Mg [Bactrim DS 800-160 mg] 1 tab PO Q12HR #14 tab [Rx] Follow up Appointment(s)/Referral(s): Joe Palacios MD [Primary Care Provider] - As Needed Chencho Porter MD [STAFF PHYSICIAN] - 05/13/17 Activity/Diet/Wound Care/Special Instructions: pt is to call Dr. Porter's office for follow up appt. Discharge Disposition: HOME SELF-CARE
== END 2017-05-10 16:47 | disposition home or self-care (01) ==
LOC: EC 03:11 → 3OBS 08:56
PROVIDERS: ADMIT Urology; ATTEND Urology
DX: L02.215 Cutaneous abscess of perineum (principal); F17.200 Nicotine dependence, unspecified, uncomplicated; Z79.899 Other long term (current) drug therapy; I71.2 Thoracic aortic aneurysm, without rupture
CPT/HCPCS: 10061; 99285; 96365; 96375 ×4; 96361 ×6; 96376 ×3; 36415; 80053; 83605; 83690; 85025; 81003; 87040; 87070; 87086; 87205; 87075; 74177; G0378; J2250; J2270 ×2; J1100; J2405; J0696; J3010; J1885; J1170; Q9967; J2704

== ENCOUNTER 2022-01-09 23:05 | Emergency (ER) | payer BC ==
[2022-01-09 23:30] VITALS: TEMP 97.7
[2022-01-09 23:55] LABS: Basophils # (A) 0.1 k/uL (0-0.2); Basophils % (A) 1 %; Eosinophils # (A) 0.4 k/uL (0-0.7); Eosinophils % (A) 4 %; HCT 48.7 % (39.0-53.0); HGB 15.5 gm/dL (13.0-17.5); Lymphocytes # (A) 3.9 k/uL (1.0-4.8); Lymphocytes % (A) 36 %; MCH 27.7 pg (25.0-35.0); MCHC 31.9 g/dL (31.0-37.0); Mean Platelet Volume 8.6; Monocytes # (A) 0.5 k/uL (0-1.0); Monocytes % (A) 5 %; Neutrophils # (A) 5.7 k/uL (1.3-7.7); Neutrophils % (A) 53 %; Platelet Count 192 k/uL (150-450); RDW 12.9 % (11.5-15.5); WBC 10.7 k/uL (3.8-10.6)
[2022-01-10 00:12] LABS: ALT 34 U/L (4-49); AST 33 U/L (17-59); African American GFR (CKD) >90 (>60 ml/min/1.73 sqM); Albumin 4.5 g/dL (3.5-5.0); Alkaline Phosphatase 96 U/L (38-126); Anion Gap 9 mmol/L; Blood Urea Nitrogen 14 mg/dL (9-20); Calcium 9.3 mg/dL (8.4-10.2); Carbon Dioxide 24 mmol/L (22-30); Chloride 102 mmol/L (98-107); Glucose 78 mg/dL (74-99); Magnesium 1.8 mg/dL (1.6-2.3); Non-African American GFR(CKD) >90 (>60 ml/min/1.73 sqM); Potassium 4.1 mmol/L (3.5-5.1); Sodium 135 mmol/L (137-145); Total Bilirubin 0.3 mg/dL (0.2-1.3); Total Protein 7.2 g/dL (6.3-8.2)
[2022-01-10 00:22] LABS: INR 1.1 (<1.2)
[2022-01-10 00:23] LABS: Prothrombin Time 11.6 sec (9.0-12.0)
[2022-01-10] MEDS ORDERED: cloNIDine HCL 0.2 MG TAB PO STA (02:56)
--- NOTE | 2022-01-10 03:14 | XR ---
EXAMINATION TYPE: XR chest 2V DATE OF EXAM: 01/10/2022 COMPARISON: 05/27/2010 HISTORY: Chest pain TECHNIQUE: 2 views FINDINGS: Heart and mediastinum are normal. Lungs are clear. Diaphragm is normal. There are no hilar masses. Bony thorax is intact. IMPRESSION: No active cardiopulmonary disease. Normal heart. No change.
[2022-01-10 03:57] VITALS: PULSE 68
[2022-01-10 04:52] VITALS: BP 127/76; RESP 16
--- NOTE | 2022-01-10 04:57 | ED ---
Dizziness HPI - General Chief Complaint: Dizziness Stated Complaint: High BP Time Seen by Provider: 01/10/22 02:44 Source: patient Mode of arrival: ambulatory Limitations: no limitations - History of Present Illness Initial Comments: This patient's 51-year-old man with history of thoracic aortic aneurysm who presents to have evaluation for feeling of lightheadedness. He noticed it had come on at work and then when he checked his blood pressure was elevated. Patient was concerned because a history of aneurysm. He states that he usually does not have high blood pressure. He takes no medications. He denies chest pain, dyspnea, diaphoresis, palpitations or syncope. MD Complaint: lightheadedness -: hour(s) Timing: gradual onset Description: lightheadedness History of Same: No History of Trauma: No Severity: mild Improves With: nothing Worsens With: nothing Associated Symptoms: denies other symptoms - Related Data Home Medications Medication Instructions Recorded Confirmed Citalopram Hydrobromide [CeleXA] 20 mg PO HS 05/10/17 05/10/17 Ibuprofen [Motrin] 600 mg PO Q6H PRN 05/10/17 05/10/17 Previous Rx's Medication Instructions Recorded Acetaminophen-Codeine 300-30mg 1 tab PO Q6H PRN #6 tablet 05/10/17 [Tylenol w/codeine #3] Sulfamethox-Tmp 800-160Mg [Bactrim 1 tab PO Q12HR #14 tab 05/10/17 DS 800-160 mg] Allergies Allergy/AdvReac Type Severity Reaction Status Date / Time No Known Allergies Allergy Verified 05/10/17 11:50 Review of Systems ROS Statement: Those systems with pertinent positive or pertinent negative responses have been documented in the HPI. ROS Other: All systems not noted in ROS Statement are negative. Constitutional: Denies: fever, chills, weakness Eyes: Denies: vision change Respiratory: Denies: cough, dyspnea Cardiovascular: Denies: chest pain, palpitations, edema, syncope Gastrointestinal: Denies: abdominal pain, nausea, vomiting Genitourinary: Denies: dysuria, hematuria Musculoskeletal: Denies: back pain Skin: Denies: rash Neurological: Denies: headache, weakness, paresthesias, confusion Past Medical History Past Medical History: Hypertension, Vascular Disorder Additional Past Medical History / Comment(s): Aortic aneurysm being monitored by Dr. Solis at [facility], 09/2016 scrotal abscess with surgery, past HTN but taken off meds, occasional low back pain, recovering alcoholic. History of Any Multi-Drug Resistant Organisms: None Reported Past Surgical History: Orthopedic Surgery Additional Past Surgical History / Comment(s): I & D scrotal abscess, R rotator cuff repair/debridement, R knee arthroscopy, low back epidural injections, colonoscopy with benign polypectomy. Past Anesthesia/Blood Transfusion Reactions: No Reported Reaction, Motion Sickness Past Psychological History: Depression Past Alcohol Use History: None Reported Past Drug Use History: None Reported - Past Family History Mother Family Medical History: No Reported History Father Family Medical History: No Reported History Additional Family Medical History / Comment(s): Father is healthy and is 69yrs old. General Exam Limitations: no limitations General appearance: alert, in no apparent distress Head exam: Present: atraumatic, normocephalic Eye exam: Present: normal appearance. Absent: scleral icterus, conjunctival injection ENT exam: Present: normal oropharynx Neck exam: Present: normal inspection Respiratory exam: Present: normal lung sounds bilaterally. Absent: respiratory distress, wheezes, rales, rhonchi, stridor Cardiovascular Exam: Present: regular rate, normal rhythm, normal heart sounds. Absent: systolic murmur, diastolic murmur, rubs, gallop GI/Abdominal exam: Present: soft. Absent: distended, tenderness, guarding, rebound, rigid, mass Extremities exam: Present: normal inspection, normal capillary refill. Absent: pedal edema, calf tenderness Back exam: Present: normal inspection. Absent: CVA tenderness (R), CVA tenderness (L) Neurological exam: Present: alert, oriented X3, CN II-XII intact. Absent: motor sensory deficit Skin exam: Present: warm, dry, intact, normal color. Absent: rash Course Vital Signs 01/09/22 01/10/22 01/10/22 23:25 02:29 03:56 Temperature 97.7 F Pulse Rate 85 65 68 Respiratory 16 16 15 Rate Blood Pressure 149/99 143/101 135/89 O2 Sat by Pulse 98 98 97 Oximetry 01/10/22 04:51 Temperature Pulse Rate 68 Respiratory 16 Rate Blood Pressure 127/76 O2 Sat by Pulse 97 Oximetry Medical Decision Making - Lab Data Result diagrams: 01/09/22 23:31 01/09/22 23:31 Lab Results 01/09/22 01/09/22 01/09/22 Range/Units 23:31 23:31 23:31 WBC 10.7 H (3.8-10.6) k/uL RBC 5.60 (4.30-5.90) m/uL Hgb 15.5 (13.0-17.5) gm/dL Hct 48.7 (39.0-53.0) % MCV 87.0 (80.0-100.0) fL MCH 27.7 (25.0-35.0) pg MCHC 31.9 (31.0-37.0) g/dL RDW 12.9 (11.5-15.5) % Plt Count 192 (150-450) k/uL MPV 8.6 Neutrophils % 53 % Lymphocytes % 36 % Monocytes % 5 % Eosinophils % 4 % Basophils % 1 % Neutrophils # 5.7 (1.3-7.7) k/uL Lymphocytes # 3.9 (1.0-4.8) k/uL Monocytes # 0.5 (0-1.0) k/uL Eosinophils # 0.4 (0-0.7) k/uL Basophils # 0.1 (0-0.2) k/uL PT (9.0-12.0) sec INR (<1.2) Sodium 135 L (137-145) mmol/L Potassium 4.1 (3.5-5.1) mmol/L Chloride 102 (98-107) mmol/L Carbon Dioxide 24 (22-30) mmol/L Anion Gap 9 mmol/L BUN 14 (9-20) mg/dL Creatinine 0.92 (0.66-1.25) mg/dL Est GFR (CKD-EPI)AfAm >90 (>60 ml/min/1.73 sqM) Est GFR (CKD-EPI)NonAf >90 (>60 ml/min/1.73 sqM) Glucose 78 (74-99) mg/dL Calcium 9.3 (8.4-10.2) mg/dL Magnesium 1.8 (1.6-2.3) mg/dL Total Bilirubin 0.3 (0.2-1.3) mg/dL AST 33 (17-59) U/L ALT 34 (4-49) U/L Alkaline Phosphatase 96 (38-126) U/L Troponin I <0.012 (0.000-0.034) ng/mL Total Protein 7.2 (6.3-8.2) g/dL Albumin 4.5 (3.5-5.0) g/dL 01/09/22 Range/Units 23:31 WBC (3.8-10.6) k/uL RBC (4.30-5.90) m/uL Hgb (13.0-17.5) gm/dL Hct (39.0-53.0) % MCV (80.0-100.0) fL MCH (25.0-35.0) pg MCHC (31.0-37.0) g/dL RDW (11.5-15.5) % Plt Count (150-450) k/uL MPV Neutrophils % % Lymphocytes % % Monocytes % % Eosinophils % % Basophils % % Neutrophils # (1.3-7.7) k/uL Lymphocytes # (1.0-4.8) k/uL Monocytes # (0-1.0) k/uL Eosinophils # (0-0.7) k/uL Basophils # (0-0.2) k/uL PT 11.6 (9.0-12.0) sec INR 1.1 (<1.2) Sodium (137-145) mmol/L Potassium (3.5-5.1) mmol/L Chloride (98-107) mmol/L Carbon Dioxide (22-30) mmol/L Anion Gap mmol/L BUN (9-20) mg/dL Creatinine (0.66-1.25) mg/dL Est GFR (CKD-EPI)AfAm (>60 ml/min/1.73 sqM) Est GFR (CKD-EPI)NonAf (>60 ml/min/1.73 sqM) Glucose (74-99) mg/dL Calcium (8.4-10.2) mg/dL Magnesium (1.6-2.3) mg/dL Total Bilirubin (0.2-1.3) mg/dL AST (17-59) U/L ALT (4-49) U/L Alkaline Phosphatase (38-126) U/L Troponin I (0.000-0.034) ng/mL Total Protein (6.3-8.2) g/dL Albumin (3.5-5.0) g/dL Disposition Clinical Impression: Hypertension Disposition: HOME SELF-CARE Condition: Good Instructions (If sedation given, give patient instructions): Hypertension (ED), Dizziness (ED) Is patient prescribed a controlled substance at d/c from ED?: No Referrals: Joe Palacios MD [Primary Care Provider] - 1-2 days
== END 2022-01-10 05:01 | disposition home or self-care (01) ==
LOC: EC 23:05
DX: I10 Essential (primary) hypertension (principal)
CPT/HCPCS: 36415; 71046; 80053; 83735; 84484; 85025; 85610; 93005; 99284

== ENCOUNTER 2022-05-24 12:27 | Emergency (ER) | payer BC ==
[2022-05-24] MEDS ORDERED: SODIUM CHLORIDE 0.9% 1,000 ML IV STA (13:11)
--- NOTE | 2022-05-24 13:35 | ED ---
General Adult HPI - General Chief complaint: Weakness Stated complaint: PO sugery JOBY Time Seen by Provider: 05/24/22 12:55 Source: patient, RN notes reviewed Mode of arrival: ambulatory Limitations: no limitations - History of Present Illness Initial comments: This a 51-year-old male presents to the emergency Department chief complaint of muscle pain, shortness breath, weakness. Patient states that he had a polyp removed out of his mouth on Saturday and . Patient states is discharged with home by noon states shortly after dinner started developing severe body aches, has shortness breath, weakness. He states that it back to work but states he was feeling to off surgery return home. Patient denies any new medications. Patient did call ENT physician who stated most likely from anesthetic. Patient denies any history of DVT or PE. - Related Data Home Medications Medication Instructions Recorded Confirmed Albuterol Inhaler [Ventolin Hfa 2 puff INHALATION RT-Q6H PRN 03/22/22 05/24/22 Inhaler] Acetaminophen Tab [Tylenol Tab] 1,000 mg PO Q6HR PRN 05/24/22 05/24/22 Ibuprofen [Motrin Ib] 800 mg PO Q8H PRN 05/24/22 05/24/22 Allergies Allergy/AdvReac Type Severity Reaction Status Date / Time No Known Allergies Allergy Verified 05/24/22 13:53 Review of Systems ROS Statement: Those systems with pertinent positive or pertinent negative responses have been documented in the HPI. ROS Other: All systems not noted in ROS Statement are negative. Past Medical History Past Medical History: Hypertension, Vascular Disorder Additional Past Medical History / Comment(s): Aortic aneurysm being monitored by Dr. Solis at [facility], 09/2016 scrotal abscess with surgery, past HTN but taken off meds, occasional low back pain, recovering alcoholic. History of Any Multi-Drug Resistant Organisms: None Reported Past Surgical History: Orthopedic Surgery Additional Past Surgical History / Comment(s): I & D scrotal abscess, R rotator cuff repair/debridement, R knee arthroscopy, low back epidural injections, colonoscopy with benign polypectomy. ent surgery polyp removed from throat Past Anesthesia/Blood Transfusion Reactions: No Reported Reaction, Motion Sickness Past Psychological History: Depression Smoking Status: Current every day smoker Past Alcohol Use History: None Reported Past Drug Use History: None Reported - Past Family History Mother Family Medical History: No Reported History Father Family Medical History: No Reported History Additional Family Medical History / Comment(s): Father is healthy and is 69yrs old. General Exam Limitations: no limitations General appearance: alert, in no apparent distress Head exam: Present: atraumatic, normocephalic, normal inspection Eye exam: Present: normal appearance, PERRL, EOMI. Absent: scleral icterus, conjunctival injection, periorbital swelling ENT exam: Present: normal exam, normal oropharynx, mucous membranes moist Neck exam: Present: normal inspection, full ROM. Absent: tenderness, meningismus, lymphadenopathy Respiratory exam: Present: normal lung sounds bilaterally. Absent: respiratory distress, wheezes, rales, rhonchi, stridor Cardiovascular Exam: Present: regular rate, normal rhythm, normal heart sounds. Absent: systolic murmur, diastolic murmur, rubs, gallop, clicks Neurological exam: Present: alert, oriented X3, CN II-XII intact Skin exam: Present: warm, dry, intact, normal color. Absent: rash Course Vital Signs 05/24/22 12:36 Temperature 97.9 F Pulse Rate 82 Respiratory 20 Rate Blood Pressure 147/85 O2 Sat by Pulse 99 Oximetry Medical Decision Making - Medical Decision Making 51-year-old male presented for body aches, mild shortness breath, denies feeling well. Patient had mildly elevated CK. Patient was hydrated, EKG labs including d-dimer which were otherwise negative. Patient denies increase fluids, take, Motrin, recheck with PCP return for any worsening change in symptoms. - Lab Data Result diagrams: 05/24/22 13:27 05/24/22 13:27 Lab Results 05/24/22 05/24/22 05/24/22 Range/Units 13:27 13:27 13:27 WBC 12.5 H (3.8-10.6) k/uL RBC 5.20 (4.30-5.90) m/uL Hgb 15.2 (13.0-17.5) gm/dL Hct 44.8 (39.0-53.0) % MCV 86.2 (80.0-100.0) fL MCH 29.2 (25.0-35.0) pg MCHC 33.9 (31.0-37.0) g/dL RDW 13.6 (11.5-15.5) % Plt Count 195 (150-450) k/uL MPV 8.9 Neutrophils % 53 % Lymphocytes % 38 % Monocytes % 5 % Eosinophils % 2 % Basophils % 1 % Neutrophils # 6.6 (1.3-7.7) k/uL Lymphocytes # 4.7 (1.0-4.8) k/uL Monocytes # 0.6 (0-1.0) k/uL Eosinophils # 0.2 (0-0.7) k/uL Basophils # 0.1 (0-0.2) k/uL PT 10.5 (9.0-12.0) sec INR 1.0 (<1.2) APTT 23.5 (22.0-30.0) sec D-Dimer 0.19 (<0.60) mg/L FEU Sodium 140 (137-145) mmol/L Potassium 4.1 (3.5-5.1) mmol/L Chloride 107 (98-107) mmol/L Carbon Dioxide 25 (22-30) mmol/L Anion Gap 8 mmol/L BUN 18 (9-20) mg/dL Creatinine 0.90 (0.66-1.25) mg/dL Est GFR (CKD-EPI)AfAm >90 (>60 ml/min/1.73 sqM) Est GFR (CKD-EPI)NonAf >90 (>60 ml/min/1.73 sqM) Glucose 78 (74-99) mg/dL Plasma Lactic Acid Kiran (0.7-2.0) mmol/L Calcium 8.4 (8.4-10.2) mg/dL Magnesium 1.8 (1.6-2.3) mg/dL Total Bilirubin 0.4 (0.2-1.3) mg/dL AST 52 (17-59) U/L ALT 52 H (4-49) U/L Alkaline Phosphatase 85 (38-126) U/L Creatine Kinase 470 H (55-170) U/L Troponin I (0.000-0.034) ng/mL NT-Pro-B Natriuret Pep pg/mL Total Protein 6.2 L (6.3-8.2) g/dL Albumin 3.9 (3.5-5.0) g/dL Coronavirus (PCR) (Not Detectd) Influenza Type A RNA (Not Detectd) Influenza Type B (PCR) (Not Detectd) 05/24/22 05/24/22 05/24/22 Range/Units 13:27 13:27 13:27 WBC (3.8-10.6) k/uL RBC (4.30-5.90) m/uL Hgb (13.0-17.5) gm/dL Hct (39.0-53.0) % MCV (80.0-100.0) fL MCH (25.0-35.0) pg MCHC (31.0-37.0) g/dL RDW (11.5-15.5) % Plt Count (150-450) k/uL MPV Neutrophils % % Lymphocytes % % Monocytes % % Eosinophils % % Basophils % % Neutrophils # (1.3-7.7) k/uL Lymphocytes # (1.0-4.8) k/uL Monocytes # (0-1.0) k/uL Eosinophils # (0-0.7) k/uL Basophils # (0-0.2) k/uL PT (9.0-12.0) sec INR (<1.2) APTT (22.0-30.0) sec D-Dimer (<0.60) mg/L FEU Sodium (137-145) mmol/L Potassium (3.5-5.1) mmol/L Chloride (98-107) mmol/L Carbon Dioxide (22-30) mmol/L Anion Gap mmol/L BUN (9-20) mg/dL Creatinine (0.66-1.25) mg/dL Est GFR (CKD-EPI)AfAm (>60 ml/min/1.73 sqM) Est GFR (CKD-EPI)NonAf (>60 ml/min/1.73 sqM) Glucose (74-99) mg/dL Plasma Lactic Acid Kiran 0.9 (0.7-2.0) mmol/L Calcium (8.4-10.2) mg/dL Magnesium (1.6-2.3) mg/dL Total Bilirubin (0.2-1.3) mg/dL AST (17-59) U/L ALT (4-49) U/L Alkaline Phosphatase (38-126) U/L Creatine Kinase (55-170) U/L Troponin I <0.012 (0.000-0.034) ng/mL NT-Pro-B Natriuret Pep 285 pg/mL Total Protein (6.3-8.2) g/dL Albumin (3.5-5.0) g/dL Coronavirus (PCR) (Not Detectd) Influenza Type A RNA (Not Detectd) Influenza Type B (PCR) (Not Detectd) 05/24/22 05/24/22 Range/Units 13:27 13:27 WBC (3.8-10.6) k/uL RBC (4.30-5.90) m/uL Hgb (13.0-17.5) gm/dL Hct (39.0-53.0) % MCV (80.0-100.0) fL MCH (25.0-35.0) pg MCHC (31.0-37.0) g/dL RDW (11.5-15.5) % Plt Count (150-450) k/uL MPV Neutrophils % % Lymphocytes % % Monocytes % % Eosinophils % % Basophils % % Neutrophils # (1.3-7.7) k/uL Lymphocytes # (1.0-4.8) k/uL Monocytes # (0-1.0) k/uL Eosinophils # (0-0.7) k/uL Basophils # (0-0.2) k/uL PT (9.0-12.0) sec INR (<1.2) APTT (22.0-30.0) sec D-Dimer (<0.60) mg/L FEU Sodium (137-145) mmol/L Potassium (3.5-5.1) mmol/L Chloride (98-107) mmol/L Carbon Dioxide (22-30) mmol/L Anion Gap mmol/L BUN (9-20) mg/dL Creatinine (0.66-1.25) mg/dL Est GFR (CKD-EPI)AfAm (>60 ml/min/1.73 sqM) Est GFR (CKD-EPI)NonAf (>60 ml/min/1.73 sqM) Glucose (74-99) mg/dL Plasma Lactic Acid Kiran (0.7-2.0) mmol/L Calcium (8.4-10.2) mg/dL Magnesium (1.6-2.3) mg/dL Total Bilirubin (0.2-1.3) mg/dL AST (17-59) U/L ALT (4-49) U/L Alkaline Phosphatase (38-126) U/L Creatine Kinase (55-170) U/L Troponin I (0.000-0.034) ng/mL NT-Pro-B Natriuret Pep pg/mL Total Protein (6.3-8.2) g/dL Albumin (3.5-5.0) g/dL Coronavirus (PCR) Not Detected (Not Detectd) Influenza Type A RNA Not Detected (Not Detectd) Influenza Type B (PCR) Not Detected (Not Detectd) Disposition Clinical Impression: Myalgia, Fatigue Disposition: HOME SELF-CARE Condition: Stable Instructions (If sedation given, give patient instructions): Musculoskeletal Pain (ED) Additional Instructions: Please return to the Emergency Department if symptoms worsen or any other concerns. Is patient prescribed a controlled substance at d/c from ED?: No Referrals: Joe Palacios MD [Primary Care Provider] - 1-2 days Time of Disposition: 15:51
[2022-05-24 14:03] LABS: Basophils # (A) 0.1 k/uL (0-0.2); Basophils % (A) 1 %; Eosinophils # (A) 0.2 k/uL (0-0.7); Eosinophils % (A) 2 %; HCT 44.8 % (39.0-53.0); HGB 15.2 gm/dL (13.0-17.5); Lymphocytes # (A) 4.7 k/uL (1.0-4.8); Lymphocytes % (A) 38 %; MCH 29.2 pg (25.0-35.0); MCHC 33.9 g/dL (31.0-37.0); MCV 86.2 fL (80.0-100.0); Mean Platelet Volume 8.9; Monocytes # (A) 0.6 k/uL (0-1.0); Monocytes % (A) 5 %; Neutrophils # (A) 6.6 k/uL (1.3-7.7); Neutrophils % (A) 53 %; Platelet Count 195 k/uL (150-450); RDW 13.6 % (11.5-15.5); WBC 12.5 k/uL (3.8-10.6)
[2022-05-24 14:20] LABS: Partial Thromboplastin Time 23.5 sec (22.0-30.0); Prothrombin Time 10.5 sec (9.0-12.0)
[2022-05-24 14:22] LABS: ALT 52 U/L (4-49); AST 52 U/L (17-59); African American GFR (CKD) >90 (>60 ml/min/1.73 sqM); Albumin 3.9 g/dL (3.5-5.0); Alkaline Phosphatase 85 U/L (38-126); Anion Gap 8 mmol/L; Blood Urea Nitrogen 18 mg/dL (9-20); Calcium 8.4 mg/dL (8.4-10.2); Carbon Dioxide 25 mmol/L (22-30); Chloride 107 mmol/L (98-107); Creatine Kinase 470 U/L (55-170); Glucose 78 mg/dL (74-99); Magnesium 1.8 mg/dL (1.6-2.3); Non-African American GFR(CKD) >90 (>60 ml/min/1.73 sqM); Potassium 4.1 mmol/L (3.5-5.1); Sodium 140 mmol/L (137-145); Total Bilirubin 0.4 mg/dL (0.2-1.3); Total Protein 6.2 g/dL (6.3-8.2)
--- NOTE | 2022-05-24 14:27 | XR ---
EXAMINATION TYPE: XR chest 2V DATE OF EXAM: 05/24/2022 COMPARISON: Chest x-ray January 10, 2022 HISTORY: Difficulty in breathing. TECHNIQUE: Frontal and lateral views of the chest are obtained. FINDINGS: Low lung volumes with slightly elevated left hemidiaphragm redemonstrated. There is no tyson picious focal air space opacity, pleural effusion, or pneumothorax seen. The cardiac silhouette size is stable and within normal limits. Multilevel spurring of thoracic spine is redemonstrated. IMPRESSION: No acute cardiopulmonary process. No significant change from prior.
[2022-05-24 16:09] VITALS: BP 147/96; PULSE 62; RESP 18; TEMP 97.6
== END 2022-05-24 16:09 | disposition home or self-care (01) ==
LOC: EC 12:27
DX: M79.10 Myalgia, unspecified site (principal); R53.83 Other fatigue; I10 Essential (primary) hypertension; F32.A Depression, unspecified; F17.200 Nicotine dependence, unspecified, uncomplicated; Z79.899 Other long term (current) drug therapy; Z20.822 Contact with and (suspected) exposure to COVID-19
CPT/HCPCS: 36415; 71046; 80053; 82550; 83605; 83735; 83880; 84484; 85025; 85379; 85610; 85730; 87502; 87635; 96360; 99285

== ENCOUNTER → 2024-07-20 | Outpatient (CLI) | payer BC ==
--- NOTE | 2024-07-20 10:30 | CT ---
EXAMINATION TYPE: CT angio chest DATE OF EXAM: 07/20/2024 9:16 AM COMPARISON: 12/04/2009 02/14/2022 CLINICAL INDICATION: Male, 53 years old with history of I171.20 thoracic aneurysm; thoracic aortc ane urysm TECHNIQUE/CONTRAST: CTA scan of the thorax is performed without and with IV Contrast, patient injected with 100 mL of Iso lauren 370, MIP images are created and reviewed these are created on a separate workstation.. CT DLP: 1185.5 mGycm, Automated exposure control for dose reduction was used. FINDINGS: Lungs/Pleura: No evidence of focal consolidation, pleural effusion or pneumothorax. Scattered wedge-s haped subpleural probable atelectasis right lower lobe calcified granuloma elevated left diaphragm. Airway: Large airways are patent. Heart: Heart is within normal limits for size. Vasculature: Ectasia of ascending thoracic aorta up to 4.3 cm. No evidence for intramural hematoma on noncontrast imaging. No evidence of intimal flap to suggest dissection. No aneurysm identified. Scat tered atherosclerotic disease. There is no evidence for a filling defect within the pulmonary vascula ture to suggest acute pulmonary embolism. The pulmonary artery is of normal size. Mediastinum: No gross evidence of adenopathy. Musculoskeletal: No acute osseous abnormalities Soft Tissues/lymph nodes: Unremarkable. Lower neck: No significant findings. Upper Abdomen: Nonobstructing left renal calculus measuring 3 mm. 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 Previously 4.0 cm which could be due to phase of cardi ac cycle. No evidence for aneurysm. No acute thoracic process. No evidence for dissection or pulmonar y embolus in the central pulmonary arterial vasculature. Follow up recommendations for incidental pulmonary nodules, if there are any, are per [employer] or [employer]. https://radiopaedia.org/articles/dduraqkapg-txqhfzq-idrswqnrt-sduzul-xobcqysfhlgwklh-[email or web address]?lang=us [facility], , 07/20/2024 10:28 AM
== END | disposition home or self-care (01) ==
LOC: RADCTMAIN 08:17
PROVIDERS: ATTEND Thoracic Surgery (Cardiothoracic Vascular Surgery)
DX: I71.20 Thoracic aortic aneurysm, without rupture, unspecified (principal)
CPT/HCPCS: 71275; Q9967